=== PATIENT | female | born 1960 | race Two or more races ===

== ENCOUNTER 2017-04-11 00:29 | Emergency (ER) | payer BC ==
[~2017-04-11] VITALS: Ht 167.6 cm; Wt 81.6 kg
[2017-04-11 00:29] VITALS: BP 136/62
[2017-04-11] MEDS ORDERED: HYDROCODONE/APAP 5/325MG 1 EACH TABLET PO ONE (01:00)
[2017-04-11] MEDS ORDERED: HYDROCODONE/APAP 5/325MG 1 EACH TABLET ONE (01:03)
== END 2017-04-11 01:24 | disposition home or self-care (01) ==
LOC: EDBD 00:30 → ER 00:30
DX: S16.1XXA Strain of muscle, fascia and tendon at neck level, initial encounter (principal); S00.83XA Contusion of other part of head, initial encounter; F41.9 Anxiety disorder, unspecified; F31.9 Bipolar disorder, unspecified; F12.10 Cannabis abuse, uncomplicated; W01.198A Fall on same level from slipping, tripping and stumbling with subsequent striking against other object, initial encounter; Y93.89 Activity, other specified; Y92.89 Other specified places as the place of occurrence of the external cause; Y99.8 Other external cause status
CPT/HCPCS: A4606; Z7610

== ENCOUNTER 2017-04-21 01:56 | Emergency (ER) | payer BC ==
[~2017-04-21] VITALS: Ht 165.1 cm; Wt 88.5 kg
--- NOTE | 2017-04-21 01:56 | NUR ---
[place] FROM HOME C/O N/V AND DIZZINESS FROM "MARIJUANA TOXICITY". NO SOB BUT STAES "MY STOMACH HURTS 08/06". A/OX4 VSS NAD ABLE TO MAKE NEEDS KNOWN. WILL CONTINUE TO MONITOR FOR ANY CHANGES
[2017-04-21] MEDS ORDERED: ONDANSETRON HCL/PF 4 MG/2 ML VIAL ONE (02:10)
[2017-04-21] MEDS ORDERED: LORAZEPAM INJ 2 MG/ML VIAL ONE (02:26)
[2017-04-21] MEDS ORDERED: ONDANSETRON HCL/PF 4 MG/2 ML VIAL IM ONE (02:30)
[2017-04-21] MEDS ORDERED: LORAZEPAM INJ 2 MG/ML VIAL IM ONE (02:30)
[2017-04-21 05:09] VITALS: BP 124/95
== END 2017-04-21 05:10 | disposition home or self-care (01) ==
LOC: ER 01:59
DX: F12.10 Cannabis abuse, uncomplicated (principal); R11.2 Nausea with vomiting, unspecified; F41.9 Anxiety disorder, unspecified; F32.9 Major depressive disorder, single episode, unspecified; G89.29 Other chronic pain
CPT/HCPCS: 96372 ×2; 99284; A4606; J2060; J2405; Z7610